=== PATIENT | female | born 1975 | race Caucasian/White ===

== ENCOUNTER 2024-07-02 08:10 | Emergency (ER) | payer MEDICAID ==
[~2024-07-02] VITALS: Ht 172.7 cm; Wt 91.0 kg
[2024-07-02] MEDS: SODIUM CHLORIDE 0.9% 500 ML IV ONE (10:18)
[2024-07-02 10:19] VITALS: TEMP 99.2
[2024-07-02] MEDS: ACETAMINOPHEN 500 MG TAB PO ONE (10:19)
[2024-07-02] MEDS: ONDANSETRON ODT 4 MG TAB PO ONE (10:19)
[2024-07-02 11:04] LABS: Basophils # (auto) 0 10 ^3/uL (0-0.2); Basophils % (auto) 0.3 % (0.0-2.0); Eosinophils # (auto) 0 10 ^3/uL (0-0.8); Eosinophils % (auto) 0.2 % (0.0-7.0); Hematocrit 42.2 % (36.0-46.0); Hemoglobin 14.4 g/dL (12.2-16.2); Lymphocytes # (auto) 0.2 10 ^3/uL (0.4-5.4); Lymphocytes % (auto) 2.2 % (10.0-50.0); Mean Corpuscular Hemoglobin 30.4 pg (28.0-32.0); Mean Corpuscular Volume 89.3 fL (80.0-100.0); Monocytes # (auto) 0.8 10 ^3/uL (0-1.3); Neutrophils # (auto) 7.4 10 ^3/uL (1.6-8.6); Neutrophils % (auto) 88.3 % (37.0-80.0); Platelet Count (auto) 287 10^3/uL (140-450); Red Blood Cells 4.73 10^6/uL (4.0-5.20); Red Cell Distribution Width 15.2 % (11.8-14.3); White Blood Cell 8.4 10^3/uL (4.4-10.8)
[2024-07-02 11:27] LABS: Alanine Aminotransferase 18 U/L (7-40); Alkaline Phosphatase 52 U/L (46-116); Anion Gap 1 (5-15); BUN/Creatinine Ratio 10.8 (10.0-20.0); Blood Urea Nitrogen 8 mg/dL (9-23); Calcium 9.5 mg/dL (8.7-10.4); Carbon Dioxide 29 mmol/L (20-30); Chloride 106 mmol/L (98-107); Glucose 102 mg/dL (74-106); Potassium 3.5 mmol/L (3.5-5.1); Sodium 136 mmol/L (136-145)
[2024-07-02 11:28] LABS: Albumin 4.2 g/dL (3.2-4.8); Aspartate Aminotransferase 13 U/L (13-40); Bilirubin, Total 0.6 mg/dL (0.2-1.0); Total Protein 7.3 g/dL (5.7-8.2)
[2024-07-02 11:42] VITALS: BP 119/84; PULSE 117; RESP 18; O2SAT 98
[2024-07-02 12:10] LABS: COVID19 ANTIGEN SOFIA FIA POSITIVE (NEGATIVE)
[2024-07-02] MEDS: cefTRIAXone SOD 1,000 MG VL IM ONE (12:10)
[2024-07-02 12:12] LABS: Rapid Influenza A Negative (Negative); Rapid Influenza B Negative (Negative)
[2024-07-02] MEDS ORDERED: AZIT-43 PO (12:37)
[2024-07-02] MEDS ORDERED: IBUP-1455 PO (12:37)
[2024-07-02] MEDS ORDERED: PROM5SOL PO (12:37)
== END 2024-07-02 12:38 | disposition home or self-care (01) ==
LOC: ER 08:10
DX: U07.1 COVID-19 (principal); Z98.890 Other specified postprocedural states; Z87.442 Personal history of urinary calculi
CPT/HCPCS: 36415; 71046; 80053; 85025; 87426; 87804; 93005; 96360; 96372; 99285; J0696; J7040; Q0162